=== PATIENT | male | born 1975 | race Caucasian/White ===

== ENCOUNTER 2025-03-01 09:41 | Emergency (ER) | payer MEDICAID, SELFPAY ==
[2025-03-01 09:50] VITALS: BP 116/82; PULSE 75; RESP 18; TEMP 36.4; O2SAT 97; BMI 24.5
--- NOTE | 2025-03-01 09:52 | XR_ITS ---
Examination: CT abdomen and pelvis without contrast. Coronal 3-D reconstructions. Sagittal 2-D reconstructions. Date and time of exam:March 01, 2020 5:11 AM INDICATIONS: Fever chills abdominal pain nausea vomiting beginning 3 days ago CTDI: vol (mGy): 5.85 DLP: (mGycm): 347 Technique: Axial images of the abdomen have been obtained, 3 mm slice thickness Intravenous contrast material has not been administered. Low dose protocols were performed. One or more of the following dose reduction techniques were used; automated exposure control, adjustment of the mA and/or KV according to patient size, use of iterative reconstruction technique. Findings: No focal liver or splenic lesions No gallstones No pancreatic or adrenal mass Mild right perinephric stranding Portions of the appendix are fluid filled, appendix measuring up to 7 mm with early pericecal inflammatory change No pelvic abscess No prostatomegaly Contracted urinary bladder IMPRESSION: Right perinephric stranding, consider urinary tract infection Portions of the appendix are fluid filled measuring up to 7 mm with early pericecal inflammatory change, the appearance should be clinically correlated as to early acute appendicitis
[2025-03-01] MEDS: KETOROLAC INJ 30 MG/ML VIAL IM (10:12)
[2025-03-01 10:21] LABS: Collection Type, Urine Clean Catch
[2025-03-01 10:31] LABS: Basophils % (Auto) 0 % (0-2.5); Eosinophils # (Auto) 0.1 Thou/mm3 (0.0-0.5); Eosinophils % (Auto) 1 % (0-10); Hemoglobin 16.3 g/dL (13.5-16.0); Immature Granulocytes % (Auto) 0 % (0-0); Immature Granulocytes Auto 0.03 Thou/mm3 (0.00-0.00); Lymphocytes # (Auto) 1.5 Thou/mm3 (1.0-4.8); Lymphocytes % (Auto) 17 % (10-50); Mean Corpuscular HGB Conc 35.4 g/dl (31.0-37.0); Mean Corpuscular Hemoglobin 32.5 pg (25.0-35.0); Mean Corpuscular Volume 92 fL (80-100); Monocytes # (Auto) 0.9 Thou/mm3 (0.0-0.8); Monocytes % (Auto) 10 % (0-12); Neutrophils # (Auto) 6.3 Thou/mm3 (1.8-7.7); Neutrophils % (Auto) 71 % (37-80); Nucleated Red Blood Cell % 0 /100 WBC (0); Platelet Count 291 Thou/mm3 (140-440); RDW Standard Deviation 50.7 fL (35.1-43.9); Red Blood Count 5.02 Miln/mm3 (4.50-5.90); White Blood Count 8.9 Thou/mm3 (3.8-10.6)
[2025-03-01 10:38] LABS: Bilirubin,Urine 1+ (Negative); Blood,Urine Negative (Negative); Clarity,Urine Clear (Clear/Hazy); Color,Urine Yellow (Lt Yel-Yel); Culture Indicated,Urine Not Indicated; Glucose, Urine Negative (Negative); Ketones,Urine Trace (Negative); Nitrite,Urine Negative (Negative); Protein,Urine 1+ (Neg - Trace); RBC,Urine 1 /hpf (0-3); Specific Gravity,Urine 1.036 (1.001-1.035); Squamous Epithelial Cell,Urine 1 /hpf (0-5); Transitional Epi Cells,Urine < 1 /hpf (0-5); WBC,Urine < 1 /hpf (0-5)
[2025-03-01 10:47] LABS: Leukocyte Esterase,Urine Negative (Negative)
[2025-03-01 10:58] LABS: Anion Gap 6 (7-16); BUN/Creatinine Ratio 17 Ratio (12-20); Blood Urea Nitrogen 15 mg/dL (9-23); Carbon Dioxide 27.1 mMol/L (20.0-31.0); Chloride 103 mMol/L (98-107); Creatinine (Component) 0.9 mg/dL (0.6-1.3); Estimated Creatinine Clearance 102.5 mL/min (>60); Potassium 4.3 mMol/L (3.4-5.1); Sodium 136 mMol/L (136-145); eGFR > 60 See Note
[2025-03-01 10:59] LABS: Alanine Aminotransferase 7 U/L (10-49); Albumin, Serum 4.4 gm/dL (3.5-5.0); Albumin/Globulin Ratio 1.7 (1.2-2.2); Alkaline Phosphatase 76 U/L (46-116); Aspartate Amino Transferase 17 U/L (0-34); Bilirubin,Total 0.5 mg/dL (0.3-1.2); Calcium 8.8 mg/dL (8.3-10.6); Calcium (Corrected) 8.8 mg/dL (8.5-10.1); Globulin 2.6 gm/dL (2.3-3.5); Glucose 107 mg/dL (74-106); Lipase 34 U/L (12-53); Osmolality,Calculated 272 (275-295)
[2025-03-01 11:00] LABS: Alcohol, Urine Negative (Negative); Amphetamine/Methamp Scrn,U Negative (Negative); Barbiturate Screen,Urine Negative (Negative); Benzodiazepines Screen,Urine Negative (Negative); Benzoylecgonine Screen, Ur Negative (Negative); Fentanyl Screen,Urine Negative (Negative); Opiate Screen,Urine Negative (Negative); THC Screen,Urine Positive (Negative)
--- NOTE | 2025-03-01 11:26 | PD.EDRME ---
Rapid Medical Screening Exam RME Arrival date/time: 03/01/25 09:41 49-year-old male presents to the emergency department today for complaints of generalized abdominal pain Chief Complaint: Fever Time Seen by Provider: 03/01/25 09:52 Vital signs: Vital Signs Temperature 97.5 F 03/01/25 09:50 Pulse Rate 75 03/01/25 09:50 Respiratory Rate 18 03/01/25 09:50 Blood Pressure 116/82 03/01/25 09:50 Pulse Oximetry (%) 97 03/01/25 09:50 Oxygen Delivery Method Room Air 03/01/25 09:50
[2025-03-01 11:40] VITALS: BP 99/74; PULSE 95; RESP 16; TEMP 36.6; O2SAT 100
--- NOTE | 2025-03-01 11:56 | PD.EDABDPN ---
ED Abdominal Pain RME/HPI General Chief Complaint: Fever Stated complaint: FEVER, CHILLS/COLD SWEAT, ABD PAIN X 3 DAYS Time seen by provider: 03/01/25 09:52 Arrival date/time: 03/01/25 09:41 49-year-old male with no known medical history presents to the emergency room with a chief complaint of fevers, chills, right lower quadrant abdominal pain x 3 days Source: patient Mode of arrival: ambulatory Limitations: no limitations RME / HPI RME / HPI narrative: 03/01/25 09:41 49-year-old male presents to the emergency department today for complaints of generalized abdominal pain Related Data Previous Rx's ?Medication ?Instructions ?Recorded nitrofurantoin 100 mg PO Q12H 5 days #10 caps 03/01/25 monohydrate/macrocrystals 100 mg capsule (Macrobid) Allergies Allergy/AdvReac Type Severity Reaction Status Date / Time codeine Allergy Severe JITTERY, Verified 03/01/25 09:46 JOSE C Review of Systems Review of Systems Systems Reviewed: All systems reviewed, normal except as documented Constitutional Constitutional: Reports system reviewed and no additional complaints, except as documented, Denies fatigue, Denies fever(s), Denies headache(s) and Denies weakness Eyes Eyes: Reports system reviewed and no additional complaints, except as documented, Denies blurry vision and Denies change in vision ENT Ears, Nose, Mouth, and Throat: Reports system reviewed and no additional complaints, except as documented, Denies otalgia, Denies headache(s), Denies nasal congestion, Denies throat swelling and Denies vertigo Cardiovascular Cardiovascular: Reports system reviewed and no additional complaints, except as documented, Denies chest pain, Denies dyspnea and Denies dyspnea on exertion Respiratory Respiratory: Reports system reviewed and no additional complaints, except as documented, Denies chest congestion, Denies cough, Denies dyspnea, Denies dyspnea on exertion and Denies wheezing Gastrointestinal Gastrointestinal: Reports system reviewed and no additional complaints, except as documented, Reports abdominal pain, Reports cramping, Reports nausea and Reports vomiting Genitourinary Genitourinary: Reports system reviewed and no additional complaints, except as documented, Denies dysuria and Denies hematuria Musculoskeletal Musculoskeletal: Reports system reviewed and no additional complaints, except as documented and Denies back pain Integumentary/Breasts Skin/Breast: Reports system reviewed and no additional complaints, except as documented and Denies wounds Neurologic Neurologic: Reports system reviewed and no additional complaints, except as documented, Denies confusion, Denies headache(s), Denies lack of coordination, Denies vertigo and Denies weakness Psychiatric Psychiatric: Reports system reviewed and no additional complaints, except as documented, Denies anxiety, Denies confusion, Denies depression, Denies paranoia, Denies suicidal ideation and Denies tactile hallucinations Endocrine Endocrine: Reports system reviewed and no additional complaints, except as documented and Denies fatigue Hematologic/Lymphatic Hematologic/Lymphatic: Reports system reviewed and no additional complaints, except as documented and Denies lymphadenopathy Allergic/Immunologic Allergic/Immunologic: Reports system reviewed and no additional complaints, except as documented, Denies throat swelling, Denies urticaria and Denies wheezing ED Exam General Limitations: Present no limitations General appearance: Present alert and in no apparent distress Head Head exam: Present atraumatic Eye Eye exam: Present normal appearance, PERRL and EOMI ENT ENT exam: Present normal exam, normal oropharynx and mucous membranes moist Neck Neck exam: Present normal inspection, full ROM and trachea midline Chest Chest inspection: Present normal inspection and symmetric chest wall rise Respiratory Respiratory exam: Present normal lung sounds bilaterally Cardiovascular Cardiovascular exam: Present regular rate, normal rhythm and normal heart sounds Abdominal Exam Abdominal exam: Present soft, tenderness, normal bowel sounds and tenderness at McBurney's Point Abdominal tenderness: Present RLQ, epigastrium and moderate Extremities Exam Extremities exam: Present normal inspection and full ROM Back Exam Back exam: Present normal inspection and full ROM Neurological Exam Neurological exam: Present alert, oriented X3 and CN II-XII intact Psychiatric Psychiatric exam: Present normal affect and normal mood Skin Skin exam: Present warm, dry, intact and normal color Course Quality Measures none Orders Category Date Time Status CT abdomen pelvis wo con Stat Exams 03/01/25 09:52 Completed Alcohol, Urine Stat Lab 03/01/25 10:11 Completed CBC Stat Lab 03/01/25 10:06 Completed Comprehensive Metabolic Panel Stat Lab 03/01/25 10:06 Completed Drug Screen,Urine Stat Lab 03/01/25 10:11 Completed Lipase Stat Lab 03/01/25 10:06 Completed UA, C/S IF [Urinalysis, C/S if Indicated] Stat Lab 03/01/25 10:11 Completed Ketorolac Inj [Toradol Inj] Med 03/01/25 09:52 Discontinued 30 mg IM X1 ONE Vital Signs Vital signs: Vital Signs Temperature 97.5 F 03/01/25 09:50 Pulse Rate 75 03/01/25 09:50 Respiratory Rate 18 03/01/25 09:50 Blood Pressure 116/82 03/01/25 09:50 Pulse Oximetry (%) 97 03/01/25 09:50 Oxygen Delivery Method Room Air 03/01/25 09:50 O2 saturation 97% within normal limits Abdominal Pain MDM MDM Narrative MDM Narrative:: 49-year-old male with no known medical history presents to the emergency room with a chief complaint of fevers, chills, right lower quadrant abdominal pain x 3 days Patient is hemodynamically stable and in no apparent distress. He is afebrile not tachycardic and not tachypneic Physical examination shows right lower quadrant abdominal tenderness, with some tenderness to McBurney's point. The patient also states he has had fevers at home and has been nauseous and vomiting. My overall score was a [address] Baker the on-call general surgeon was consulted and she came to evaluate the patient. Based on Dr. Baker's evaluation at this time she does not think it is appendicitis. We spoke to the patient and agreed to discharge with antibiotics for urinary tract infection and given strict return precautions as there is a possibility can be early appendicitis. Patient was discharged and educated to follow-up with primary care provider in the next 24 to 48 hours and return to the emergency room for any evidence of worsening signs or symptoms Patient data External records reviewed:: [facility] previous records Clinical information provided by:: patient Social determinants that could affect healthcare access:: none Patient has the following chronic illnesses:: No chronic illness How is presenting disease/condition affected by chronic disease/condition?: no chronic disease Evaluation data The following diagnostics were reviewed and interpreted by me:: lab results and radiology exam(s) Lab and/or radiology exams considered but not ordered:: Labs and radiology exams considered and ordered Interpretation Summary: CT abdomen and pelvis-Findings: No focal liver or splenic lesions No gallstones No pancreatic or adrenal mass Mild right perinephric stranding Portions of the appendix are fluid filled, appendix measuring up to 7 mm with early pericecal inflammatory change No pelvic abscess No prostatomegaly Contracted urinary bladder IMPRESSION: Right perinephric stranding, consider urinary tract infection Portions of the appendix are fluid filled measuring up to 7 mm with early pericecal inflammatory change, the appearance should be clinically correlated as to early acute appendicitis Medications / Prescriptions Medications or Prescriptions considered but not ordered:: Medication given Medication administrations:: Medication Administration History Discontinued Medications Ketorolac Tromethamine (Ketorolac Inj 30 Mg/Ml Vial) 30 mg IM X1 ONE Stop: 03/01/25 09:53 Last Admin: 03/01/25 10:12 Dose: 30 mg Documented By: OA Medication given Consultations Consultation(s) initiated? (list below): Yes Consultation #1 (Physician, Specialty, Details): Dr. Baker general surgeon on-call Time: 11:30 Diagnosis Differential diagnosis abdominal pain: abdominal pain, acute appendicitis, constipation, gastroenteritis and other (Urinary tract infection) Most likely diagnosis given after review of the tests above:: Urinary tract infection Admission Indicated Admission indicated?: not indicated Admission Request Was there a request for admission?: No Disposition Plan Disposition Plan: Discharge Discharge Attestation Discharge Attestation: The patient and all family members were given an opportunity to ask questions and understood the discharge instructions. Discharge instructions specifically effects, indications for sooner follow up or return to the emergency department, and the expected course of current diagnosis. Patient condition: Stable Discharge Plan Plan Patient Disposition: HOME (Self Care) Discharge Disposition comment: Stable Prescriptions/Referrals Prescriptions/Med Rec: New nitrofurantoin monohyd/m-cryst [Macrobid] 100 mg capsule 100 mg PO Q12H 5 Days Qty: 10 0RF Rx Instructions: must administer with a meal/food Referrals: Maryann Fox MD [Primary Care Provider] - In 1 week Problem List Clinical Impression: UTI (urinary tract infection) Patient/Caregiver Discharge Instructions Education Materials: ED Bladder Infection, Male (Adult) Additional Instructions: Please follow-up with your primary care provider in the next 24 to 48 hours If your signs and symptoms get worse please return to the emergency room immediately. You were given strict return precautions for any worsening right lower quadrant abdominal pain, fevers, vomiting. Please increase your oral and fluid intake. Print Language: Sierra Leonean Stand Alone Forms: Elsa Award Info., Patient Portal Info Letter KASI/MIKE Supervising Physician KASI/MIKE Supervising Physician: Dr Stevens
== END 2025-03-01 12:53 | disposition home or self-care (01) ==
PROVIDERS: Nurse Practitioner Primary Care; Emergency Provider Emergency Medicine; PCP Family Medicine
DX: N39.0 Urinary tract infection, site not specified (principal)
CPT/HCPCS: 36415; 74176; 80053; 80307; 80320; 81001; 83690; 85025; 96372; 99284; J1885; G0480

== ENCOUNTER 2025-03-31 16:41 | Emergency (ER) | payer MEDICAID, SELFPAY ==
[2025-03-31 17:06] VITALS: BP 142/84; PULSE 101; RESP 18; TEMP 37; O2SAT 99; BMI 22.8
--- NOTE | 2025-03-31 17:16 | EDNOTE_ITS ---
<Statement entered by Carmelita Friend MD - 04/09/25 19:13> As co-signing physician, I was present and available for consult prn. I concur with the plan and care as documented by the midlevel provider. ED General RME/HPI General Chief complaint: General Adult/Misc Complain Stated complaint: WANTS TO GET DETOXED Time Seen by Provider: 03/31/25 16:58 Source: patient Arrival date/time: 03/31/25 16:41 49-year-old male with no known medical history presents to the emergency room with a chief complaint of needing resources for from social problems specialist for methamphetamine cessation. Patient states he used it yesterday and he is here to flush it out of his system. Mode of arrival: ambulatory Limitations: no limitations Related Data Allergies Allergy/AdvReac Type Severity Reaction Status Date / Time codeine Allergy Severe JITTERY, Verified 03/01/25 09:46 JOSE C Review of Systems Review of Systems Systems Reviewed: All systems reviewed, normal except as documented Constitutional Constitutional: Reports system reviewed and no additional complaints, except as documented, Denies fatigue, Denies fever(s), Denies headache(s) and Denies weakness Eyes Eyes: Reports system reviewed and no additional complaints, except as documented, Denies blurry vision and Denies change in vision ENT Ears, Nose, Mouth, and Throat: Reports system reviewed and no additional complaints, except as documented, Denies otalgia, Denies headache(s), Denies nasal congestion, Denies throat swelling and Denies vertigo Cardiovascular Cardiovascular: Reports system reviewed and no additional complaints, except as documented, Denies chest pain, Denies dyspnea and Denies dyspnea on exertion Respiratory Respiratory: Reports system reviewed and no additional complaints, except as documented, Denies chest congestion, Denies cough, Denies dyspnea, Denies dyspnea on exertion and Denies wheezing Gastrointestinal Gastrointestinal: Reports system reviewed and no additional complaints, except as documented, Denies abdominal pain, Denies cramping, Denies nausea and Denies vomiting Genitourinary Genitourinary: Reports system reviewed and no additional complaints, except as documented, Denies dysuria and Denies hematuria Musculoskeletal Musculoskeletal: Reports system reviewed and no additional complaints, except as documented and Denies back pain Integumentary/Breasts Skin/Breast: Reports system reviewed and no additional complaints, except as documented and Denies wounds Neurologic Neurologic: Reports system reviewed and no additional complaints, except as documented, Denies confusion, Denies headache(s), Denies lack of coordination, Denies vertigo and Denies weakness Psychiatric Psychiatric: Reports system reviewed and no additional complaints, except as documented, Denies anxiety, Denies confusion, Denies depression, Denies paranoia, Denies suicidal ideation and Denies tactile hallucinations Endocrine Endocrine: Reports system reviewed and no additional complaints, except as documented and Denies fatigue Hematologic/Lymphatic Hematologic/Lymphatic: Reports system reviewed and no additional complaints, except as documented and Denies lymphadenopathy Allergic/Immunologic Allergic/Immunologic: Reports system reviewed and no additional complaints, except as documented, Denies throat swelling, Denies urticaria and Denies wheezing Past Medical History Past Medical History NEUROLOGIC: Positive Neurological Disorders, Seizures and Migraine CARDIAC: Positive Hypertension; Negative Cardiac Disorders or Congestive Heart Failure RESPIRATORY: Negative Chronic Obstructive Pulmonary Disease (COPD) GASTROINTESTINAL: Negative Gastrointestinal Disorders, Hepatitis or Colorectal Cancer GENITOURINARY: Negative Genitourinary Disorders, Renal Disease or Prostate Cancer REPRODUCTIVE: Negative Testicular Cancer MUSCULOSKELETAL: Positive Musculoskeletal Disorders and Arthritis; Negative Bone Cancer ENDOCRINE: Negative Endocrine Disorders, Diabetes Mellitus Type 1 or Diabetes Mellitus Type 2 HEMATOLOGIC: Negative Blood Disorders OTHER HISTORY: Positive Chicken Pox; Negative Autoimmune Disease, Falls, Blood Transfusions, Blood Transfusion Reaction, Anesthesia Reactions, MRSA, Cancer, Colorectal Cancer, Lung Cancer, Prostate Cancer or Testicular Cancer Family History FAMILY HISTORY: Positive Family Cardiac Disorders; Negative Family Psychiatric Problems, Family Respiratory Disorders, Family Gastrointestinal Problems, Family Cancer, Family Surgery or Family Anesthesia Reaction Surgical History SURGICAL: Negative Cardiac Surgery or Vasectomy Social History SMOKING STATUS: Current every day smoker ED Exam General Limitations: Present no limitations General appearance: Present alert and in no apparent distress Head Head exam: Present atraumatic Eye Eye exam: Present normal appearance, PERRL and EOMI ENT ENT exam: Present normal exam, normal oropharynx and mucous membranes moist Neck Neck exam: Present normal inspection, full ROM and trachea midline Chest Chest inspection: Present normal inspection and symmetric chest wall rise Respiratory Respiratory exam: Present normal lung sounds bilaterally Cardiovascular Cardiovascular exam: Present regular rate, normal rhythm and normal heart sounds Abdominal Exam Abdominal exam: Present soft and normal bowel sounds Extremities Exam Extremities exam: Present normal inspection and full ROM Back Exam Back exam: Present normal inspection and full ROM Neurological Exam Neurological exam: Present alert, oriented X3 and CN II-XII intact Psychiatric Psychiatric exam: Present normal affect and normal mood Skin Skin exam: Present warm, dry, intact and normal color Course Quality Measures none Vital Signs Vital signs: Vital Signs Temperature 98.6 F 03/31/25 17:06 Pulse Rate 101 H 03/31/25 17:06 Respiratory Rate 18 03/31/25 17:06 Blood Pressure 142/84 H 03/31/25 17:06 Pulse Oximetry (%) 99 03/31/25 17:06 Oxygen Delivery Method Room Air 03/31/25 17:06 Discharge Plan Plan Patient Disposition: HOME (Self Care) Discharge Disposition comment: Stable Problem List Clinical Impression: Need for social problems specialist intervention Patient/Caregiver Discharge Instructions Additional Instructions: Please follow-up with your primary care provider in the next 24 to 48 hours Resources were given to to help you overcome methamphetamine. Our social problems specialist is always here and can talk to you and give you resources. For any evidence of worsening signs or symptoms return to the emergency room immediately Print Language: Armenian Stand Alone Forms: Elsa Award Info., Patient Portal Info Letter PA/AIRCRAFT ENGINE ASSEMBLER Supervising Physician PA/MIKE Supervising Physician: Dr[facility] FRIEND [facility] Narrative MDM hospital course: 49-year-old male with no known medical history presents to the emergency room with a chief complaint of needing resources for from social problems specialist for methamphetamine cessation. Patient states he used it yesterday and he is here to flush it out of his system. Patient is hemodynamically stable and in no apparent distress immigration services officer department was consulted and they went to go speak to the patient and given resources. Patient states he has no other questions and is ready for discharge Patient was discharged and educated to follow-up with primary care provider in the next 24 to 48 hours and return to the emergency room for any evidence of worsening signs or symptoms Clinical Information Provided by none and patient Medical Records Reviewed None Meds/Rx Considered, not Ordered None Labs/Rad/Tests considered, not Ordered None Chronic Illness/Social Conditions which may negatively complicate care or outcome(s)-explain: Homeless and ETOH/drugs/substance abuse EKG EKG not done Lab Interpretation Labs: none Imaging Imaging interpretation: none Medication Administration(s) none Dispositon Disposition: Discharge Home
--- NOTE | 2025-03-31 17:20 | PC.CC ---
ENTRY LEVEL ACCOUNT EXECUTIVE Student [employer] provided substance abuse resources to patient. Patient was receptive of resources available
== END 2025-03-31 17:18 | disposition home or self-care (01) ==
LOC: SERX 17:21
PROVIDERS: Emergency Provider Emergency Medicine; PCP Internal Medicine
DX: Z64.4 Discord with counselors (principal)
CPT/HCPCS: 99281

== ENCOUNTER 2025-05-07 06:02 | Emergency (ER) | payer MEDICAID, SELFPAY ==
[2025-05-07 06:05] VITALS: BP 137/74; PULSE 124; RESP 17; TEMP 37.2; O2SAT 97; BMI 24.4
[2025-05-07 06:24] VITALS: PULSE 110; RESP 19; O2SAT 108
--- NOTE | 2025-05-07 06:32 | PD.EDMEDCL ---
ED Medical Clearance RME/HPI General Chief complaint: Medical Clearance Stated complaint: MEDICAL CLEARANCE Time Seen by Provider: 05/07/25 06:28 Arrival date/time: 05/07/25 06:02 RME / HPI RME / HPI Narrative: DR. FRIEND MAIN ED EVALUATION: 49-year-old male with past medical history of alcohol use disorder, hypertension, seizures, migraines, and drug use (positive in past for methamphetamine and marijuana) presents to the Emergency Department brought in by police as a medical clearance for fall. Per police, patient was tased twice and sustained a laceration to the right eyebrow and right inner ear, both without active bleeding. Patient denies loss of consciousness; per police, he fell from a standing position to his right side. Taser contact was made to the left chest and upper back. Patient reports visual hallucinations, which he states are baseline. He denies suicidal or homicidal ideation. Allergy to codeine noted. Related Information Allergies Allergy/AdvReac Type Severity Reaction Status Date / Time codeine Allergy Severe JITTERY, Verified 03/01/25 09:46 JOSE C Review of Systems Review of Systems Systems Reviewed: All systems reviewed, normal except as documented Past Medical History Past Medical History NEUROLOGIC: Positive Neurological Disorders, Seizures and Migraine CARDIAC: Positive Hypertension MUSCULOSKELETAL: Positive Musculoskeletal Disorders and Arthritis OTHER HISTORY: Positive Chicken Pox Family History FAMILY HISTORY: Positive Family Cardiac Disorders Social History SMOKING STATUS: Current some day smoker SUBSTANCE USE: does not use ALCOHOL: Never ED Exam Narrative Physical exam: GENERAL APPEARANCE: alert and oriented x 4, well-developed, well-nourished, no acute distress VITALS: All vitals were reviewed and the pulse ox is 99% on room air, which is normal according to my interpretation. HEENT: right eyebrow laceration measuring 1.5 cm linear; inside right ear irregular skin tear measuring 2 cm; pupils equal, round, reactive to light; EOMI; mucous membranes pink, moist; oropharynx clear NECK: Supple LUNGS: CTABL; no wheezes, no rales, no rhonchi HEART: Regular rate, regular rhythm; normal S1, S2; no murmurs ABDOMEN: non distended; normal BS; soft, no tenderness, no guarding, no rebound; no masses, no organomegaly, no hernia BACK: no CVA tenderness EXTREMITIES: atraumatic; no edema NEUROLOGIC: awake; alert and oriented x4; cranial nerves II-XII grossly intact; no focal sensory or motor deficits PSYCHIATRIC: appropriate mood and affect SKIN: warm, dry, normal color; no rashes Course Quality Measures none Orders Category Date Time Status EKG (ED ONLY) *Do not use* NOW Care 05/07/25 07:[address] head/brain wo con Stat Exams 05/07/25 06:39 Completed EKG (ED Only) Stat Exams 05/07/25 07:01 Ordered TET,DIP/PERT AC (Adult)-Tdap [Boostrix Adult (Tdap) Med 05/07/25 07:56 Discontinued Vacc] 0.5 ml IMI .ONCE ONE Vital Signs Vital signs: Vital Signs Temperature 99.0 F 05/07/25 06:05 Pulse Rate 124 H 05/07/25 06:05 Respiratory Rate 17 05/07/25 06:05 Blood Pressure 137/74 H 05/07/25 06:05 Pulse Oximetry (%) 97 05/07/25 06:05 Oxygen Delivery Method Room Air 05/07/25 06:05 PROCEDURES: Procedure Comment Right Eyebrow Laceration Repair Procedure Note: Location: Right eyebrow Size/Type: 1.5 cm linear laceration Procedure: Wound was cleaned with normal saline. Edges were well approximated. Repaired using skin glue and steri strips. No complications noted. Right Inner Ear Skin Tear Repair Procedure Note: Location: Inside right ear Size/Type: 2 cm irregular skin tear Procedure: Wound was gently irrigated with normal saline. Irregular edges aligned as best as possible. Repaired using skin glue and steri strips. No active bleeding at completion. Tolerated well. Medical Clearance MDM Narrative MDM Narrative:: Teagan Armijo am scribing for and in the presence of Dr. Friend. Patient data External records reviewed:: [facility] previous records Clinical information provided by:: patient and law enforcement Social determinants that could affect healthcare access:: substance use Patient has the following chronic illnesses:: Alcohol use disorder, hypertension, seizures, migraines, and drug use (positive in past for methamphetamine and marijuana). How is presenting disease/condition affected by chronic disease/condition?: exacerbated by Evaluation data The following diagnostics were reviewed and interpreted by me:: lab results and radiology exam(s) Lab and/or radiology exams considered but not ordered:: none Interpretation Summary: Procedure(s): CT head/brain wo con Accession Number(s): [id number] cc: Carlton Mandel MD; SQ Raad Venegas MD; Carmelita Friend MD~ Examination: CT brain head without contrast. 2-D sagittal coronal reconstructions Date and time of exam:May 07, 2020 0651 hours, comparison January 31, 2022 INDICATIONS: Head injury 2 hours ago with head pain, medical clearance CTDI: vol (mGy):48.30 DLP: (mGycm):791 Technique: Multiple CT axial sections of the brain have been obtained, 5 mm slice thickness. Contrast has not been administered. 2-D sagittal, coronal reconstructions have been obtained Low dose protocols were performed. One or more of the following dose reduction techniques were used; automated exposure control, adjustment of the mA and/or KV according to patient size, use of iterative reconstruction technique. Findings: No significant ventricular enlargement. Stable 10 mm fat-containing mass in the right interpeduncular cistern cistern, which may represent a dermoid cyst Intra-axial or extra-axial hemorrhage density is not seen. No mass effect or midline shift Basal cisterns are not remarkable. Fourth ventricle is midline. Cranial vault intact. Impression: Negative for acute hemorrhage, mass effect or midline shift Dictated By: Carlton Mandel MD Medications / Prescriptions Medications or Prescriptions considered but not ordered:: none Medication administrations:: Medication Administration History Discontinued Medications Diphtheria/Tetanus/Acell Pertussis (Diphth,Pertuss(Acell),Tet Vac 0.5 Ml Syr- Adult) 0.5 ml IMi .ONCE ONE Stop: 05/07/25 07:57 Last Admin: 05/07/25 08:31 Dose: 0.5 ml Documented By: AA see above Consultations Consultation(s) initiated? (list below): No Diagnosis Medical Clearance Differential Diagnosis: other (traumatic head injury, substance-induced altered mental status, seizure-related fall) Most likely diagnosis given after review of the tests above:: Medical clearance for incarceration Vaccine for [id number]-yzbjsyh-znstdteli, combined Laceration of ear region Laceration of brow without complication Head injury Electric shock caused by Taser Admission Indicated Admission indicated?: not indicated Admission Request Was there a request for admission?: No Disposition Plan Disposition Plan: Discharge (prison) Discharge Attestation Discharge Attestation: The patient and all family members were given an opportunity to ask questions and understood the discharge instructions. Discharge instructions specifically effects, indications for sooner follow up or return to the emergency department, and the expected course of current diagnosis. Patient condition: Stable Discharge Plan Plan Patient Disposition: Residential/Court/Law Discharge Disposition comment: Okay to book Prescriptions/Referrals Referrals: Raad Logan MD [Primary Care Provider] - In 1 week Problem List Clinical Impression: Medical clearance for incarceration, Vaccine for qimjzrjvkk-wpqvlhj-tadyvdubi, combined, Laceration of ear region, Laceration of brow without complication, Head injury, Electric shock caused by Taser Patient/Caregiver Discharge Instructions Education Materials: ED Head Injury (Adult), ED Laceration, Face: Skin Glue Print Language: Armenian
--- NOTE | 2025-05-07 06:39 | XR_ITS ---
Examination: CT brain head without contrast. 2-D sagittal coronal reconstructions Date and time of exam:May 07, 2020 0651 hours, comparison January 31, 2022 INDICATIONS: Head injury 2 hours ago with head pain, medical clearance CTDI: vol (mGy):48.30 DLP: (mGycm):791 Technique: Multiple CT axial sections of the brain have been obtained, 5 mm slice thickness. Contrast has not been administered. 2-D sagittal, coronal reconstructions have been obtained Low dose protocols were performed. One or more of the following dose reduction techniques were used; automated exposure control, adjustment of the mA and/or KV according to patient size, use of iterative reconstruction technique. Findings: No significant ventricular enlargement. Stable 10 mm fat-containing mass in the right interpeduncular cistern cistern, which may represent a dermoid cyst Intra-axial or extra-axial hemorrhage density is not seen. No mass effect or midline shift Basal cisterns are not remarkable. Fourth ventricle is midline. Cranial vault intact. Impression: Negative for acute hemorrhage, mass effect or midline shift
[2025-05-07] MEDS: DIPHTH,PERTUSS(ACELL),TET VAC 0.5 ML SYR- ADULT IMi (08:31)
[2025-05-07 08:39] VITALS: BP 156/98; PULSE 102; RESP 16; O2SAT 99
== END 2025-05-07 08:40 ==
PROVIDERS: Emergency Provider Emergency Medicine; PCP Family Medicine
DX: Z02.89 Encounter for other administrative examinations (principal); S01.311A Laceration without foreign body of right ear, initial encounter; S01.111A Laceration without foreign body of right eyelid and periocular area, initial encounter; Y35.833A Legal intervention involving a conducted energy device, suspect injured, initial encounter; Z23 Encounter for immunization
CPT/HCPCS: 12011; 70450; 90471; 90715; 99283